=== PATIENT | female | born 1955 | race Caucasian/White ===

== ENCOUNTER 2023-06-10 21:13 | Inpatient (IN) ==
[2023-06-10] MEDS ORDERED: cefTRIAXone SODIUM 2,000 MG/50 ML BAG IV STA (21:39)
--- NOTE | 2023-06-10 21:43 | Emergency Department Note ---
Impression & Plan Sepsis, Acute UTI, Acute hypotension ED Provider Note NAME: MILY KAMARA AGE: 68 SEX: F : 1955 ARRIVES VIA: Walk-In INFORMANT: Patient ED PROVIDER(S): Elias Cifuentes DO CHIEF COMPLAINT: weakness HPI: Patient is a 68-year-old female who presents the ER for weakness. Family at bedside notes that yesterday she was yesterday stating that she was not feeling well. She denied all complaints. Family at bedside notes that she has had a little bit of a cough and runny nose. She has had a previous brain aneurysm which was clipped intra-arterially. Patient denies any head pain, change in vision, chest pain, shortness of breath, nausea, vomiting, or diarrhea. She does admit to dysuria, urgency, and frequency. She is not sure when this started. ADDITIONAL HISTORY OBTAINED: Per HPI Chronic Medical/Social Conditions Affecting Care: Per HPI PAST MEDICAL HISTORY:See Below PAST SURGICAL HISTORY:See Below FAMILY HISTORY:See Below SOCIAL HISTORY:See Below HOME MEDICATIONS:See Below ALLERGIES:See Below VITALS:See Below PHYSICAL EXAMINATION: GENERAL: Sitting up in bed, alert, disheveled, chronically ill-appearing EYE EXAM: normal conjunctiva. PERRL and EOM's grossly intact. OROPHARYNX: Mucous membranes are dry NECK: supple, no nuchal rigidity, no adenopathy, non-tender LUNGS: Clear to auscultation. Normal chest wall mechanics HEART: no murmurs, S1 normal and S2 normal ABDOMEN: abdomen soft, non-tender, normo-active bowel sounds, no masses, no rebound or guarding. UPPER EXTREMITIES: upper extremities are grossly normal. LOWER EXTREMITIES: No pitting edema. NEURO EXAM: Normal sensorium, cranial nerves II-XII grossly intact, normal speech, no gross weakness of arms, no gross weakness of legs. No drift. Finger to nose intact. Gross sensation intact. MEDICAL DECISION MAKING: Patient is a 68-year-old female who presents the ER for above-stated complaint. IV was established blood work was obtained. Labs show mild leukopenia at 4.7 thousand. No significant anemia. BMP with mild hypokalemia 3.4. Lactate was elevated 2.9. Patient was hypotensive initially with systolic pressures in the 80s. After 2 L patient's blood pressure trended up to the low 100s and remained in the low 100s. She was given a total of 2.5 L while in the ER. Given 2 g of Rocephin. LFTs bilirubin was unremarkable. Lipase was normal. TSH unremarkable. UA does suggest a clear UTI with bacteria, leuks, whites which is consistent with her symptoms. Patient and family were updated bedside. CT abdomen pelvis per my read showed no obvious bowel obstruction. She is updated bedside. Discussed with the hospitalist Dr. Carroll for further evaluation management treatment. Held on pressures of systolic pressures rebound and responsive to fluids and I do favor she was significantly dehydrated. External Records Reviewed: None Consults/Care Managements Discussions: Per [facility] Triage Nursing notes reviewed. Limited review of prior medical records performed Vital Signs: reviewed and remarkable for hypotensive Differential diagnosis: Differential diagnoses includes but is not limited to gastritis, peptic ulcer disease, GERD, gallbladder disease, pancreatitis, small bowel obstruction, appendicitis, diverticulitis, hernia, urinary tract infection, torsion, [/ectopic (if female)], perforation, trauma, infectious. ER treatment provided: See below Diagnostics interpreted by me include EKG and cardiac monitoring as listed below: -Cardiac Monitoring: An order was placed for continuous cardiac monitoring. The monitor shows a rate of 70 with sinus rhythm. -ECG: Sinus rhythm rate 76 Normal axis No PVCs Nonspecific ST wave changes in V2 through V6 ST wave changes have slightly worsened from previous -Laboratory studies:Interpreted by me as stated above in MDM and shown below. Imaging studies: Xrays: As interpreted by me: Portable AP upright 1 view of the chest shows no focal infiltrate CTs show: CT head and abdomen pelvis per my read shows no obvious large brain mass nor any obvious bowel obstruction Procedures:none Critical Care: I have personally spent 32 minutes of critical care time in the direct management of this patient. This includes bedside care, interpretation of diagnostic studies, and testing, discussion with consultants, patient, and family members, and other required patient management activities. This 32 minutes is in excess of all separately billable procedures. Past Med/Surg History Medical History (Updated 06/11/23 @ 00:25 by Elias Cifuentes DO) Aneurysm Family History (Updated 04/08/18 @ 05:10 by Mervin Carey) Other Family history non-contributory Social History Smoking Status: Never smoker Preferred Language: Guatemalan Feels Safe at Home: Yes Allergies Allergies Allergy/AdvReac Type Severity Reaction Status Date / Time amoxicillin Allergy . Verified 06/10/23 22:01 Penicillins Allergy . Verified 06/10/23 22:01 Home Meds Home Medications Medication Instructions Recorded Confirmed No Known Home Medications 06/10/23 06/10/23 Results & Data (ED) Vital Signs Vital Signs - 24 hr 06/10/23 21:16 06/10/23 21:26 06/10/23 21:26 Temperature 36.8 C Temperature Source Temporal Artery Scan Pulse Rate 78 75 78 Pulse Rhythm Regular Pulse Strength Normal Respiratory Rate 78 H 16 Respiratory Effort / Characteristics Non-Labored Spontaneous Respiratory Depth Normal Respiratory Pattern Regular Blood Pressure 82/43 L 88/54 L Blood Pressure Mean 56 58 Blood Pressure Position Sitting Pulse Oximetry 100 99 Oxygen Delivery Method Room Air Room Air Sepsis Recent Fever Within 48 Hours No Sepsis New/Unexplained Change in Mental Status N/A Sepsis Action Taken by Nursing No Action Required 06/10/23 21:30 06/10/23 21:39 06/10/23 21:46 Temperature Temperature Source Pulse Rate 77 77 76 Pulse Rhythm Pulse Strength Respiratory Rate 16 16 14 Respiratory Effort / Characteristics Respiratory Depth Respiratory Pattern Blood Pressure 83/51 L 82/55 L 82/66 L Blood Pressure Mean 59 62 69 Blood Pressure Position Pulse Oximetry 92 92 98 Oxygen Delivery Method Room Air Room Air Room Air Sepsis Recent Fever Within 48 Hours Sepsis New/Unexplained Change in Mental Status Sepsis Action Taken by Nursing 06/10/23 22:00 06/10/23 22:16 06/10/23 22:48 Temperature Temperature Source Pulse Rate 73 72 80 Pulse Rhythm Pulse Strength Respiratory Rate 15 15 22 Respiratory Effort / Characteristics Respiratory Depth Respiratory Pattern Blood Pressure 83/61 L 88/73 L 99/62 L Blood Pressure Mean 68 82 77 Blood Pressure Position Pulse Oximetry 97 95 93 Oxygen Delivery Method Room Air Room Air Room Air Sepsis Recent Fever Within 48 Hours Sepsis New/Unexplained Change in Mental Status Sepsis Action Taken by Nursing 06/10/23 23:00 06/10/23 23:15 06/10/23 23:30 Temperature Temperature Source Pulse Rate 78 76 78 Pulse Rhythm Pulse Strength Respiratory Rate 18 15 12 Respiratory Effort / Characteristics Respiratory Depth Respiratory Pattern Blood Pressure 104/62 108/61 109/82 Blood Pressure Mean 65 86 85 Blood Pressure Position Pulse Oximetry 95 95 94 Oxygen Delivery Method Room Air Room Air Room Air Sepsis Recent Fever Within 48 Hours Sepsis New/Unexplained Change in Mental Status Sepsis Action Taken by Nursing 06/10/23 23:45 Temperature Temperature Source Pulse Rate 81 Pulse Rhythm Pulse Strength Respiratory Rate 16 Respiratory Effort / Characteristics Respiratory Depth Respiratory Pattern Blood Pressure 99/74 L Blood Pressure Mean 83 Blood Pressure Position Pulse Oximetry 92 Oxygen Delivery Method Room Air Sepsis Recent Fever Within 48 Hours Sepsis New/Unexplained Change in Mental Status Sepsis Action Taken by Nursing Laboratory Data 06/10/23 21:30 06/10/23 21:30 Lab Results 06/10/23 06/10/23 06/10/23 Range/Units 21:30 21:32 21:40 WBC 4.76 L (4.8-10.8) K/ul RBC 3.74 L (4.20-5.40) M/uL Hgb 12.3 (12.0-16.0) g/dl Hct 34.8 L (37.0-47.0) % MCV 93.0 (80.0-100.0) fL MCH 32.9 (25.0-34.0) pg MCHC 35.3 (32.0-36.0) g/dL RDW Std Deviation 43.0 (36.4-46.3) fL RDW Coeff of [place] 12.6 (11.5-14.5) % Plt Count 130 (130-400) K/uL MPV 10.3 (9.4-12.4) fL Immature Gran % (Auto) 0.4 % Neut % (Auto) 74.2 % Lymph % (Auto) 20.6 % [place] % (Auto) 3.8 % Eos % (Auto) 0.2 % Baso % (Auto) 0.8 % Neut # (Auto) 3.53 (1.40-6.50) K/uL Lymph # (Auto) 0.98 L (1.20-3.40) K/uL [place] # (Auto) 0.18 (0.11-0.59) K/uL Eos # (Auto) 0.01 (0.00-0.50) K/uL Baso # (Auto) 0.04 (0.00-0.20) K/uL Immature Gran # (Auto) 0.02 (0.01-0.20) K/uL Sodium 132 L (136-145) mmol/L Potassium 3.4 L (3.5-5.1) mmol/L Chloride 97 L (98-107) mmol/L Carbon Dioxide 27 (21-32) mmol/L Anion Gap 8 (3-11) BUN 12 (6-23) mg/dl Creatinine 1.11 (0.6-1.2) mg/dl Est Cr Clr Drug Dosing Not Reportable Est GFR ( Amer) 59.1 ml/min Est GFR (Non-Af Amer) 51.0 ml/min BUN/Creatinine Ratio 10.8 (10-20) Glucose 83 (70-99(Fasting)) mg/dl POC Glucose 98 (70-99) mg/dl Lactate (0.4-2.0) mmol/L Calcium 9.1 (8.6-10.3) mg/dl Magnesium 1.9 (1.7-2.4) mg/dl Total Bilirubin 1.1 H (0.2-1.0) mg/dl AST 44 H (13-39) U/L ALT 14 (7-52) U/L Alkaline Phosphatase 40 (34-104) U/L Total Protein 7.6 (6.0-8.3) gm/dl Albumin 4.1 (3.4-5.0) gm/dl Globulin 3.5 (2.5-4.0) gm/dl Albumin/Globulin Ratio 1.2 (0.9-2) Lipase 28 (11-82) U/L TSH 2.367 (0.300-4.500) uIu/ml Urine Color Yellow Urine Appearance Cloudy A (Clear) Urine pH 8.0 H (4.5-7.5) Ur Specific [place] 1.011 (1.000-1.030) Urine Protein Negative (Negative) Urine Glucose (UA) Negative (Negative) Urine Ketones Negative (Negative) Urine Blood 1+ H (Negative) Urine Nitrite Negative (Negative) Urine Bilirubin Negative (Negative) Urine Urobilinogen Negative (Negative) Ur Leukocyte Esterase 1+ H (Negative) Urine WBC (Auto) >30 H (0-5) /hpf Urine RBC (Auto) 5-10 H (0-4) /hpf U Hyaline Cast (Auto) 10-30 H (0-5) /lpf U Epithel Cells (Auto) 5-10 H (0-5) /lpf Urine Bacteria (Auto) 2+ H (Negative) 06/10/23 Range/Units 23:16 WBC (4.8-10.8) K/ul RBC (4.20-5.40) M/uL Hgb (12.0-16.0) g/dl Hct (37.0-47.0) % MCV (80.0-100.0) fL MCH (25.0-34.0) pg MCHC (32.0-36.0) g/dL RDW Std Deviation (36.4-46.3) fL RDW Coeff of [place] (11.5-14.5) % Plt Count (130-400) K/uL MPV (9.4-12.4) fL Immature Gran % (Auto) % Neut % (Auto) % Lymph % (Auto) % [place] % (Auto) % Eos % (Auto) % Baso % (Auto) % Neut # (Auto) (1.40-6.50) K/uL Lymph # (Auto) (1.20-3.40) K/uL [place] # (Auto) (0.11-0.59) K/uL Eos # (Auto) (0.00-0.50) K/uL Baso # (Auto) (0.00-0.20) K/uL Immature Gran # (Auto) (0.01-0.20) K/uL Sodium (136-145) mmol/L Potassium (3.5-5.1) mmol/L Chloride (98-107) mmol/L Carbon Dioxide (21-32) mmol/L Anion Gap (3-11) BUN (6-23) mg/dl Creatinine (0.6-1.2) mg/dl Est Cr Clr Drug Dosing Est GFR ( Amer) ml/min Est GFR (Non-Af Amer) ml/min BUN/Creatinine Ratio (10-20) Glucose (70-99(Fasting)) mg/dl POC Glucose (70-99) mg/dl Lactate 2.9 H* (0.4-2.0) mmol/L Calcium (8.6-10.3) mg/dl Magnesium (1.7-2.4) mg/dl Total Bilirubin (0.2-1.0) mg/dl AST (13-39) U/L ALT (7-52) U/L Alkaline Phosphatase (34-104) U/L Total Protein (6.0-8.3) gm/dl Albumin (3.4-5.0) gm/dl Globulin (2.5-4.0) gm/dl Albumin/Globulin Ratio (0.9-2) Lipase (11-82) U/L TSH (0.300-4.500) uIu/ml Urine Color Urine Appearance (Clear) Urine pH (4.5-7.5) Ur Specific [place] (1.000-1.030) Urine Protein (Negative) Urine Glucose (UA) (Negative) Urine Ketones (Negative) Urine Blood (Negative) Urine Nitrite (Negative) Urine Bilirubin (Negative) Urine Urobilinogen (Negative) Ur Leukocyte Esterase (Negative) Urine WBC (Auto) (0-5) /hpf Urine RBC (Auto) (0-4) /hpf U Hyaline Cast (Auto) (0-5) /lpf U Epithel Cells (Auto) (0-5) /lpf Urine Bacteria (Auto) (Negative) Administered Medications Doxycycline Hyclate 100 mg/ (Dextrose) 100 mls @ 50 mls/hr IV NOW STA Stop: 06/11/23 01:36 Last Admin: 06/11/23 00:00 Dose: 50 mls/hr Documented By: KILEY Discontinued Medications Sodium Chloride (Nss) 1,000 mls @ 999 mls/hr IV .Q1H1M MOHIT Stop: 06/10/23 23:45 Last Admin: 06/10/23 23:31 Dose: 999 mls/hr Documented By: Infusion: 06/10/23 23:02 Dose: Infused Documented By: Admin: 06/10/23 22:01 Dose: 999 mls/hr Documented By: KILEY Ceftriaxone Sodium (Rocephin) 2,000 mg in 50 mls @ 100 mls/hr IV NOW STA Stop: 06/10/23 22:08 Last Infusion: 06/10/23 23:44 Dose: Infused Documented By: Admin: 06/10/23 23:14 Dose: 100 mls/hr Documented By: KILEY Sodium Chloride (Nss) 500 mls @ 999 mls/hr IV .Q31M ONE Stop: 06/10/23 23:21 Last Infusion: 06/10/23 23:26 Dose: Infused Documented By: Admin: 06/10/23 22:55 Dose: 999 mls/hr Documented By: KILEY Ioversol (Optiray 320 500ml) 91 ml IV ONCE ONE Stop: 06/10/23 22:36 Last Admin: 06/10/23 22:36 Dose: 91 ml Documented By: EDK Potassium Chloride (Potassium Chloride Crtab 20 Meq Tabcr) 20 meq PO NOW STA Stop: 06/10/23 23:43 Last Admin: 06/10/23 23:57 Dose: 20 meq Documented By: KILEY Discharge Plan Visit Data Chief Complaint: Hyperglycemia Stated Complaint: HYPERGLYCEMIA, DEHYDRATION REFERRED BY DR BOYKIN ED Provider: Elias Cifuentes Discharge Problem: Sepsis, Acute UTI, Acute hypotension Forms Stand Alone Forms: [employer] Prescriptions Prescriptions: No Action No Known Home Medications Referrals Referrals: PCP,NO [Primary Care Provider] - Discharge Problem: Sepsis Qualifiers: Sepsis type: sepsis due to unspecified organism Sepsis acute organ dysfunction status: unspecified Qualified Code(s): A41.9 - Sepsis, unspecified organism
[2023-06-10] MEDS: SODIUM CHLORIDE 0.9% 1,000 ML IV SCH ×2 (22:01→23:31)
[2023-06-10 22:03] LABS: Basophils # (auto) 0.04 K/uL (0.00-0.20); Basophils % (auto) 0.8 %; Eosinophils # (auto) 0.01 K/uL (0.00-0.50); Eosinophils % (auto) 0.2 %; Hematocrit (blood only) 34.8 % (37.0-47.0); Hemoglobin 12.3 g/dl (12.0-16.0); Immature Granulocytes # (auto) 0.02 K/uL (0.01-0.20); Immature Granulocytes % (auto) 0.4 %; Lymphocytes # (auto) 0.98 K/uL (1.20-3.40); Lymphocytes % (auto) 20.6 %; Mean Corpuscular Hemoglobin 32.9 pg (25.0-34.0); Mean Corpuscular Hgb Conc 35.3 g/dL (32.0-36.0); Mean Platelet Volume 10.3 fL (9.4-12.4); Monocytes # (auto) 0.18 K/uL (0.11-0.59); Monocytes % (auto) 3.8 %; Neutrophils # (auto) 3.53 K/uL (1.40-6.50); Neutrophils % (auto) 74.2 %; Platelet Count 130 K/uL (130-400); RDW Coefficient of Variation 12.6 % (11.5-14.5); Red Blood Count 3.74 M/uL (4.20-5.40); White Blood Count 4.76 K/ul (4.8-10.8)
[2023-06-10 22:16] LABS: Alanine Aminotransferase 14 U/L (7-52); Albumin Globulin Ratio 1.2 (0.9-2); Albumin Level 4.1 gm/dl (3.4-5.0); Alkaline Phosphatase 40 U/L (34-104); Anion Gap 8 (3-11); Aspartate Aminotransferase 44 U/L (13-39); BUN Creatinine Ratio 10.8 (10-20); Bilirubin,Total 1.1 mg/dl (0.2-1.0); Blood Urea Nitrogen 12 mg/dl (6-23); Calcium 9.1 mg/dl (8.6-10.3); Carbon Dioxide 27 mmol/L (21-32); Chloride 97 mmol/L (98-107); Est GFR (African American) 59.1 ml/min; Globulin 3.5 gm/dl (2.5-4.0); Glucose 83 mg/dl (70-99(Fasting)); Lipase 28 U/L (11-82); Potassium 3.4 mmol/L (3.5-5.1); Sodium 132 mmol/L (136-145); Total Protein 7.6 gm/dl (6.0-8.3)
[2023-06-10 22:18] LABS: Appearance Urine Cloudy (Clear); Bacteria Urine Automated 2+ (Negative); Bilirubin Urine Negative (Negative); Blood Urine 1+ (Negative); Color Urine Yellow; Glucose Urine UA Negative (Negative); Ketones Urine Negative (Negative); Leukocyte Esterase Urine 1+ (Negative); Nitrite Urine Negative (Negative); Protein Urine Negative (Negative); Specific Gravity Urine 1.011 (1.000-1.030); Urobilinogen Urine Negative (Negative); WBC Urine Automated >30 /hpf (0-5)
[2023-06-10] MEDS ORDERED: OPTIRAY 320 500ml IV ONE (22:35)
[2023-06-10] MEDS ORDERED: SODIUM CHLORIDE 0.9% 500 ML IV ONE (22:51)
[2023-06-10 23:31] LABS: Magnesium 1.9 mg/dl (1.7-2.4)
[2023-06-10] MEDS ORDERED: DOXYCYCLINE HYCLATE 100 MG in DEXTROSE 5% MINI-B 100 ML IV STA (23:37)
[2023-06-10] MEDS ORDERED: POTASSIUM CHLORIDE CRTAB 20 MEQ TABCR PO STA (23:42)
[2023-06-10] MEDS ORDERED: CEFEPIME 2,000 MG/20 ML VIAL IV STA (23:58)
[2023-06-11 00:02] LABS: Thyroid Stimulating Hormone 2.367 uIu/ml (0.300-4.500)
--- NOTE | 2023-06-11 00:22 | History & Physical Report ---
Date of Service June 11, 2023 Assessment & Plan (1) Acute hypotension: Plan: Secondary to decreased p.o. intake secondary to illness Improved blood pressure after initial intervention at the ER. Multifactorial: Severe COVID-19 pneumonia (patient found to have O2 sats of less than 94% RA at the ER) Complicated UTI, possible sepsis cerebral aneurysm status post surgery Medical telemetry Decadron for severe COVID-19 pneumonia Supportive management for COVID-19 illness for now CS, Cefepime Follow lactic acid response to IVF PT OT eval once medically stable DVT prophylaxis per Lovenox subcu Full code Text document was generated using [employer] voice recognition software. It may contain grammatical or spelling errors. Kindly contact undersigned for clarification of any documentation item in question. History of Present Illness Chief Complaint: Not feeling well as per patient Primary Care Provider: NO PCP History obtained from patient, family, and records. Medical history significant for cerebral aneurysm status post surgery. 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 Patient transferred to [facility] for patient underwent subsequent vascular intervention. Patient woke up feeling weak today. Dry cough symptoms with runny nose. Unaware of sick contacts. Patient has not received COVID-19 vaccination. Patient denies headache, chest pain, SOB, abdominal pain, diarrhea, dysuria symptoms. Somewhat sleepy at home as per family. BSG reported to be 300s. SBP 80s upon arrival at the ER. Lowest O2 sats of 90s documented at the ER. Ceftriaxone administered at the ER. Medical History as above Surgical History : Cerebral aneurysm surgery, hernia repair Family History : DM, stroke Personal/Social history : Non-smoker, no EtOH intake, [employer] homemaker Allergies Allergy/AdvReac Type Severity Reaction Status Date / Time amoxicillin Allergy . Verified 06/10/23 22:01 Penicillins Allergy . Verified 06/10/23 22:01 Home Medications Medication Instructions Recorded Confirmed Type No Known Home Medications 06/10/23 06/10/23 History Past Med/Surg History Medical History (Updated 06/11/23 @ 00:25 by Elias Cifuentes DO) Aneurysm Family History (Updated 04/08/18 @ 05:10 by Mervin Carey) Other Family history non-contributory Social History Smoking Status: Never smoker Preferred Language: Yoruba Feels Safe at Home: Yes Review of Systems Review of Systems: As per HPI, all other systems reviewed and negative Physical Exam Physical Exam: GENERAL: Coherent, ill looking, episodic dry cough, no respiratory distress SKIN: Normal color, warm HEENT: Pale palpebral conjunctivae, no ptosis, dry buccal mucosa NECK : Supple, no tenderness CHEST : Decreased breath sounds, no tenderness HEART : RRR, no obvious murmurs ABDOMEN: Some distention, nontender EXTREMITIES : No LE swelling/tenderness, no other conspicuous deformities noted NEUROLOGIC : Coherent, no facial asymmetry, gait and stance not assessed Results & Data Results & Data Vital Signs (Past 12 Hours) Vital Signs Temp Pulse Resp BP Pulse Ox O2 Del Method 06/10/23 23:45 81 16 99/74 L 92 Room Air 06/10/23 23:30 78 12 109/82 94 Room Air 06/10/23 23:15 76 15 108/61 95 Room Air 06/10/23 23:00 78 18 104/62 95 Room Air 06/10/23 22:48 80 22 99/62 L 93 Room Air 06/10/23 22:16 72 15 88/73 L 95 Room Air 06/10/23 22:00 73 15 83/61 L 97 Room Air 06/10/23 21:46 76 14 82/66 L 98 Room Air 06/10/23 21:39 77 16 82/55 L 92 Room Air 06/10/23 21:30 77 16 83/51 L 92 Room Air 06/10/23 21:26 78 16 88/54 L 99 Room Air 06/10/23 21:26 75 06/10/23 21:16 36.8 C 78 78 H 82/43 L 100 Room Air Laboratory Results Laboratory Results WBC 4.76 K/ul (4.8-10.8) L 06/10/23 21:30 RBC 3.74 M/uL (4.20-5.40) L 06/10/23 21:30 Hgb 12.3 g/dl (12.0-16.0) 06/10/23 21:30 Hct 34.8 % (37.0-47.0) L 06/10/23 21:30 MCV 93.0 fL (80.0-100.0) 06/10/23 21:30 MCH 32.9 pg (25.0-34.0) 06/10/23 21:30 MCHC 35.3 g/dL (32.0-36.0) 06/10/23 21: RDW Std Deviation 43.0 fL (36.4-46.3) 06/10/23: RDW Coeff of [place] 12.6 % (11.5-14.5) 06/10/23: Plt Count 130 K/uL (130-400) 06/10/23 21: MPV 10.3 fL (9.4-12.4) 06/10/23: Immature Gran % (Auto) 0.4 % 06/10/23: Neut % (Auto) 74.2 % 06/10/23: Lymph % (Auto) 20.6 % 06/10/23: [place] % (Auto) 3.8 % 06/10/23: Eos % (Auto) 0.2 % 06/10/23: Baso % (Auto) 0.8 % 06/10/23: Neut # (Auto) 3.53 K/uL (1.40-6.50) 06/10/23 21: Lymph # (Auto) 0.98 K/uL (1.20-3.40) L 06/10/23 21: [place] # (Auto) 0.18 K/uL (0.11-0.59) 06/10/23: Eos # (Auto) 0.01 K/uL (0.00-0.50) 06/10/23: Baso # (Auto) 0.04 K/uL (0.00-0.20) 06/10/23: Immature Gran # (Auto) 0.02 K/uL (0.01-0.20) 06/10/23: Sodium 132 mmol/L (136-145) L 06/10/23: Potassium 3.4 mmol/L (3.5-5.1) L 06/10/23: Chloride 97 mmol/L (98-107) L 06/10/23: Carbon Dioxide 27 mmol/L (21-32) 06/10/23: Anion Gap 8 (3-11) 06/10/23: BUN 12 mg/dl (6-23) 06/10/23: Creatinine 1.11 mg/dl (0.6-1.2) 06/10/23 21: Est Cr Clr Drug Dosing Not Reportable 06/10/23 21: Est GFR ( Amer) 59.1 ml/min 06/10/23 21: Est GFR (Non-Af Amer) 51.0 ml/min 06/10/23 21: BUN/Creatinine Ratio 10.8 (10-20) 06/10/23 21: Glucose 83 mg/dl (70-99(Fasting)) 06/10/23 21: POC Glucose 98 mg/dl (70-99) 06/10/23 21:32 Lactate 2.9 mmol/L (0.4-2.0) H* 06/10/23 23:16 Calcium 9.1 mg/dl (8.6-10.3) 06/10/23: Magnesium 1.9 mg/dl (1.7-2.4) 06/10/23: Total Bilirubin 1.1 mg/dl (0.2-1.0) H 06/10/23 21: AST 44 U/L (13-39) H 06/10/23 21: ALT 14 U/L (7-52) 06/10/23: Alkaline Phosphatase 40 U/L (34-104) 06/10/23: Total Protein 7.6 gm/dl (6.0-8.3) 06/10/23: Albumin 4.1 gm/dl (3.4-5.0) 06/10/23: Globulin 3.5 gm/dl (2.5-4.0) 06/10/23: Albumin/Globulin Ratio 1.2 (0.9-2) 06/10/23 21: Lipase 28 U/L (11-82) 06/10/23 21: TSH 2.367 uIu/ml (0.300-4.500) 06/10/23 21: Urine Color Yellow 06/10/23: Urine Appearance Cloudy (Clear) A 06/10/23: Urine pH 8.0 (4.5-7.5) H 06/10/23: Ur Specific [place] 1.011 (1.000-1.030) 06/10/23 21:40 Urine Protein Negative (Negative) 06/10/23 21:40 Urine Glucose (UA) Negative (Negative) 06/10/23 21:40 Urine Ketones Negative (Negative) 06/10/23 21:40 Urine Blood 1+ (Negative) H 06/10/23 21:40 Urine Nitrite Negative (Negative) 06/10/23 21:40 Urine Bilirubin Negative (Negative) 06/10/23 21:40 Urine Urobilinogen Negative (Negative) 06/10/23 21:40 Ur Leukocyte Esterase 1+ (Negative) H 06/10/23 21:40 Urine WBC (Auto) >30 /hpf (0-5) H 06/10/23 21:40 Urine RBC (Auto) 5-10 /hpf (0-4) H 06/10/23 21:40 U Hyaline Cast (Auto) 10-30 /lpf (0-5) H 06/10/23 21:40 U Epithel Cells (Auto) 5-10 /lpf (0-5) H 06/10/23 21:40 Urine Bacteria (Auto) 2+ (Negative) H 06/10/23 21:40 Diagnostic Findings Laboratory Results WBC 4.76 K/ul (4.8-10.8) L 06/10/23 21: RBC 3.74 M/uL (4.20-5.40) L 06/10/23 21:30 Hgb 12.3 g/dl (12.0-16.0) 06/10/23 21: Hct 34.8 % (37.0-47.0) L 06/10/23: MCV 93.0 fL (80.0-100.0) 06/10/23 21:30 MCH 32.9 pg (25.0-34.0) 06/10/23 21: MCHC 35.3 g/dL (32.0-36.0) 06/10/23 21: RDW Std Deviation 43.0 fL (36.4-46.3) 06/10/23 21: RDW Coeff of [place] 12.6 % (11.5-14.5) 06/10/23: Plt Count 130 K/uL (130-400) 06/10/23 21: MPV 10.3 fL (9.4-12.4) 06/10/23 21: Immature Gran % (Auto) 0.4 % 06/10/23 21: Neut % (Auto) 74.2 % 06/10/23: Lymph % (Auto) 20.6 % 06/10/23: [place] % (Auto) 3.8 % 06/10/23: Eos % (Auto) 0.2 % 06/10/23: Baso % (Auto) 0.8 % 06/10/23: Neut # (Auto) 3.53 K/uL (1.40-6.50) 06/10/23 21: Lymph # (Auto) 0.98 K/uL (1.20-3.40) L 06/10/23 21: [place] # (Auto) 0.18 K/uL (0.11-0.59) 06/10/23: Eos # (Auto) 0.01 K/uL (0.00-0.50) 06/10/23: Baso # (Auto) 0.04 K/uL (0.00-0.20) 06/10/23: Immature Gran # (Auto) 0.02 K/uL (0.01-0.20) 06/10/23: Sodium 132 mmol/L (136-145) L 06/10/23: Potassium 3.4 mmol/L (3.5-5.1) L 06/10/23: Chloride 97 mmol/L (98-107) L 06/10/23: Carbon Dioxide 27 mmol/L (21-32) 06/10/23: Anion Gap 8 (3-11) 06/10/23: BUN 12 mg/dl (6-23) 06/10/23: Creatinine 1.11 mg/dl (0.6-1.2) 06/10/23: Est Cr Clr Drug Dosing Not Reportable 06/10/23: Est GFR ( Amer) 59.1 ml/min 06/10/23: Est GFR (Non-Af Amer) 51.0 ml/min 06/10/23: BUN/Creatinine Ratio 10.8 (10-20) 06/10/23 21:30 Glucose 83 mg/dl (70-99(Fasting)) 06/10/23 21:30 POC Glucose 98 mg/dl (70-99) 06/10/23 21:32 Lactate 1.5 mmol/L (0.4-2.0) 06/11/23 01:59 Calcium 9.1 mg/dl (8.6-10.3) 06/10/23 21:30 Magnesium 1.9 mg/dl (1.7-2.4) 06/10/23 21: Total Bilirubin 1.1 mg/dl (0.2-1.0) H 06/10/23 21:30 AST 44 U/L (13-39) H 06/10/23 21: ALT 14 U/L (7-52) 06/10/23 21: Alkaline Phosphatase 40 U/L (34-104) 06/10/23 21: Total Protein 7.6 gm/dl (6.0-8.3) 06/10/23 21:30 Albumin 4.1 gm/dl (3.4-5.0) 06/10/23 21:30 Globulin 3.5 gm/dl (2.5-4.0) 06/10/23 21: Albumin/Globulin Ratio 1.2 (0.9-2) 06/10/23 21:30 Lipase 28 U/L (11-82) 06/10/23 21:30 TSH 2.367 uIu/ml (0.300-4.500) 06/10/23 21:30 Urine Color Yellow 06/10/23 21:40 Urine Appearance Cloudy (Clear) A 06/10/23 21:40 Urine pH 8.0 (4.5-7.5) H 06/10/23 21:40 Ur Specific [place] 1.011 (1.000-1.030) 06/10/23 21:40 Urine Protein Negative (Negative) 06/10/23 21:40 Urine Glucose (UA) Negative (Negative) 06/10/23 21: Urine Ketones Negative (Negative) 06/10/23 21:40 Urine Blood 1+ (Negative) H 06/10/23 21:40 Urine Nitrite Negative (Negative) 11/18/23 21:40 Urine Bilirubin Negative (Negative) 06/10/23 21:40 Urine Urobilinogen Negative (Negative) 06/10/23 21:40 Ur Leukocyte Esterase 1+ (Negative) H 06/10/23 21:40 Urine WBC (Auto) >30 /hpf (0-5) H 06/10/23 21:40 Urine RBC (Auto) 5-10 /hpf (0-4) H 06/10/23 21:40 U Hyaline Cast (Auto) 10-30 /lpf (0-5) H 06/10/23 21:40 U Epithel Cells (Auto) 5-10 /lpf (0-5) H 06/10/23 21:40 Urine Bacteria (Auto) 2+ (Negative) H 06/10/23 21:40 SARS-CoV-2 (PCR) POSITIVE (Negative) A* 06/10/23 23:53 Influenza Type A (PCR) Negative (Neg) 06/10/23 23:53 Influenza Type B (PCR) Negative (Neg) 06/10/23 23:53 RSV (RT-PCR) Negative (Neg) 06/10/23 23:53 Impressions Abdomen/Pelvis CT 06/10/23 21:40 Exam(s): CT ABDOMEN + PELVIS With Contrast IV Amt: OPTIRAY 320 91ML EXAM: CT Abdomen and Pelvis With Intravenous Contrast CLINICAL HISTORY: Reason for exam: weakness. TECHNIQUE: Axial computed tomography images of the abdomen and pelvis with intravenous contrast. CTDI is 109.17 mGy and DLP is 2851.26 mGy-cm. Automated exposure control was utilized for the study. A dose lowering technique was utilized adhering to the principles of ALARA. CONTRAST: Patient received OPTIRAY 320 91ML of IV contrast COMPARISON: 08/12/2013 FINDINGS: Lung bases: Lung bases demonstrate bilateral dependent atelectasis. ABDOMEN: Liver: Unremarkable. No mass. Gallbladder and bile ducts: Gallbladder has been removed. No ductal dilation. Pancreas: Unremarkable. No mass. No ductal dilation. Spleen: Unremarkable. No splenomegaly. Adrenals: Unremarkable. No mass. Kidneys and ureters: Unremarkable. No solid mass. No hydronephrosis. Stomach and bowel: There are air-fluid levels within a mildly distended colon concerning for a gastroenteritis. PELVIS: Appendix: Appendix is not identified but there are no secondary signs of appendicitis. Bladder: Unremarkable. No mass. Reproductive: Unremarkable as visualized. ABDOMEN and PELVIS: Intraperitoneal space: Unremarkable. No free air. No significant fluid collection. Bones/joints: No acute fracture. No dislocation. Soft tissues: Unremarkable. Vasculature: Unremarkable. No abdominal aortic aneurysm. Lymph nodes: Unremarkable. No enlarged lymph nodes. IMPRESSION: Air-fluid levels within a mildly distended colon concerning for a gastroenteritis. Electronically signed by: Allan Huizar M.D. 06/11/23 03:[address] 06/10/23 21:40 Exam(s): CT HEAD Without Contrast EXAM: CT Head Without Intravenous Contrast CLINICAL HISTORY: Reason for exam: weak. TECHNIQUE: Axial computed tomography images of the head/brain without intravenous contrast. CTDI is 109.17 mGy and DLP is 2851.26 mGy-cm. Automated exposure control was utilized for the study. A dose lowering technique was utilized adhering to the principles of ALARA. COMPARISON: Comparison is made to prior CT scan of the head from April 07, 2018. FINDINGS: The study is suboptimal secondary to motion artifact. Brain: Status post stent placement in the left cavernous and petrous ICA. No hemorrhage. Mild to moderate nonspecific white matter changes. No edema. Tiny pineal cyst. Ventricles: Unremarkable. No ventriculomegaly. Bones/joints: Unremarkable. No acute fracture. Soft tissues: Unremarkable. Sinuses: Chronic maxillary and ethmoid sinusitis. No acute sinusitis. Mastoid air cells: Unremarkable as visualized. No mastoid effusion. IMPRESSION: No evidence of acute intracranial pathology. Electronically signed by: Ines Mcmillan MD 06/11/23 04:50 AM EKG as per my interpretation :Rate 75, junctional rhythm, normal axis, septal infarct, T wave abnormalities anterolateral leads, PVCs
[2023-06-11 00:58] LABS: Influenza A virus by PCR Negative (Neg); Influenza B virus by PCR Negative (Neg); RSV by PCR Negative (Neg)
[2023-06-11] MEDS ORDERED: LACTATED RINGER'S 1,000 ML IV STA ×2 (01:12)
[2023-06-11 01:29] LABS: SARS CoV2 RNA(COVID-19) Ceph POSITIVE (Negative)
[2023-06-11] MEDS ORDERED: PROMETHAZINE HCL 6.25 MG in SODIUM CHLORIDE 0.9% 50 ML IV PRN (02:12)
[2023-06-11] MEDS ORDERED: PROMETHAZINE 6.25 MG/50.25 ML BAG IV STA (02:26)
--- NOTE | 2023-06-11 03:55 | CT Scan Report ---
Exam(s): CT ABDOMEN + PELVIS With Contrast IV Amt: OPTIRAY 320 91ML EXAM: CT Abdomen and Pelvis With Intravenous Contrast CLINICAL HISTORY: Reason for exam: weakness. TECHNIQUE: Axial computed tomography images of the abdomen and pelvis with intravenous contrast. CTDI is 109.17 mGy and DLP is 2851.26 mGy-cm. Automated exposure control was utilized for the study. A dose lowering technique was utilized adhering to the principles of ALARA. CONTRAST: Patient received OPTIRAY 320 91ML of IV contrast COMPARISON: 08/12/2013 FINDINGS: Lung bases: Lung bases demonstrate bilateral dependent atelectasis. ABDOMEN: Liver: Unremarkable. No mass. Gallbladder and bile ducts: Gallbladder has been removed. No ductal dilation. Pancreas: Unremarkable. No mass. No ductal dilation. Spleen: Unremarkable. No splenomegaly. Adrenals: Unremarkable. No mass. Kidneys and ureters: Unremarkable. No solid mass. No hydronephrosis. Stomach and bowel: There are air-fluid levels within a mildly distended colon concerning for a gastroenteritis. PELVIS: Appendix: Appendix is not identified but there are no secondary signs of appendicitis. Bladder: Unremarkable. No mass. Reproductive: Unremarkable as visualized. ABDOMEN and PELVIS: Intraperitoneal space: Unremarkable. No free air. No significant fluid collection. Bones/joints: No acute fracture. No dislocation. Soft tissues: Unremarkable. Vasculature: Unremarkable. No abdominal aortic aneurysm. Lymph nodes: Unremarkable. No enlarged lymph nodes. IMPRESSION: Air-fluid levels within a mildly distended colon concerning for a gastroenteritis. Electronically signed by: Allan Huizar M.D. 06/11/23 03:55 AM
--- NOTE | 2023-06-11 04:51 | CT Scan Report ---
Exam(s): CT HEAD Without Contrast EXAM: CT Head Without Intravenous Contrast CLINICAL HISTORY: Reason for exam: weak. TECHNIQUE: Axial computed tomography images of the head/brain without intravenous contrast. CTDI is 109.17 mGy and DLP is 2851.26 mGy-cm. Automated exposure control was utilized for the study. A dose lowering technique was utilized adhering to the principles of ALARA. COMPARISON: Comparison is made to prior CT scan of the head from April 07, 2018. FINDINGS: The study is suboptimal secondary to motion artifact. Brain: Status post stent placement in the left cavernous and petrous ICA. No hemorrhage. Mild to moderate nonspecific white matter changes. No edema. Tiny pineal cyst. Ventricles: Unremarkable. No ventriculomegaly. Bones/joints: Unremarkable. No acute fracture. Soft tissues: Unremarkable. Sinuses: Chronic maxillary and ethmoid sinusitis. No acute sinusitis. Mastoid air cells: Unremarkable as visualized. No mastoid effusion. IMPRESSION: No evidence of acute intracranial pathology. Electronically signed by: Ines Mcmillan MD 06/11/23 04:50 AM
[2023-06-11] MEDS ORDERED: DEXAMETHASONE SOD INJ 4 MG/ML VIAL IV STA (05:03)
[2023-06-11] MEDS ORDERED: guaiFENesin 600 MG TABCR PO STA (05:03)
[2023-06-11] MEDS ORDERED: MAGNESIUM SULFATE / D5W 1 GM/100 ML BAG IV ONE (05:21)
[2023-06-11] MEDS ORDERED: ACETAMINOPHEN 325 MG TAB PO PRN (05:25)
[2023-06-11] MEDS ORDERED: Patient's HEIGHT &/or WEIGHT Needed STA (05:31)
--- NOTE | 2023-06-11 07:06 | XRay Report ---
XR chest 1V portable HISTORY: sepsis COMPARISON: Chest CTA 08/12/2013. FINDINGS: No pneumothorax. No pleural effusions. The cardiac silhouette is normal in size. There is d iffuse interstitial/vascular thickening. This suggests mild congestive change. No focal lung consolid ations to suggest a pneumonia. Prior cholecystectomy. No acute fractures. IMPRESSION: Diffuse interstitial/vascular thickening suggestive of mild congestive change. ACT 112: Negative or not required by law. Electronically signed by: Dunacn Stephenson M.D. 06/11/2023 7:04 AM
[2023-06-11 07:37] LABS: BUN Creatinine Ratio 11.6 (10-20); Calcium 7.8 mg/dl (8.6-10.3); Creatinine Clr Calc Pharmacy 60.4 ml/min; Est GFR (African American) 71.3 ml/min; Est GFR (Non-African American) 61.5 ml/min; Potassium 3.5 mmol/L (3.5-5.1)
[2023-06-11 07:42] LABS: Mean Corpuscular Hemoglobin 32.9 pg (25.0-34.0); Mean Corpuscular Hgb Conc 35.7 g/dL (32.0-36.0); Mean Corpuscular Volume 92.1 fL (80.0-100.0); Mean Platelet Volume 9.9 fL (9.4-12.4); Platelet Count 95 K/uL (130-400); RDW Coefficient of Variation 12.4 % (11.5-14.5); RDW Standard Deviation 41.3 fL (36.4-46.3); Red Blood Count 3.04 M/uL (4.20-5.40); White Blood Count 3.56 K/ul (4.8-10.8)
[2023-06-11] MEDS ORDERED: PROMETHAZINE HCL INJ 25 MG/ML 1 ML VIAL ONE (07:47)
[2023-06-11 07:52] LABS: Basophils # (auto) 0.03 K/uL (0.00-0.20); Basophils % (auto) 0.8 %; Eosinophils # (auto) 0.01 K/uL (0.00-0.50); Eosinophils % (auto) 0.3 %; Immature Granulocytes # (auto) 0.02 K/uL (0.01-0.20); Immature Granulocytes % (auto) 0.6 %; Lymphocytes # (auto) 0.64 K/uL (1.20-3.40); Monocytes # (auto) 0.17 K/uL (0.11-0.59); Monocytes % (auto) 4.8 %; Neutrophils # (auto) 2.69 K/uL (1.40-6.50); Neutrophils % (auto) 75.5 %
[2023-06-11] MEDS ORDERED: REMDESIVIR 200 MG in SODIUM CHLORIDE 0.9% 210 ML IV ONE (09:00)
[2023-06-11] MEDS: ENOXAPARIN INJ 40 MG/0.4 ML SYR SQ SCH (10:26)
--- NOTE | 2023-06-11 10:50 | CT Scan Report ---
CT chest diagnostic wo con CT DOSE: 486.82 mGy.cm HISTORY: pneumonia, r/o effusion TECHNIQUE: Multiaxial CT images of the chest were performed without contrast. A dose lowering techni que was utilized adhering to the principles of ALARA. COMPARISON: Abdomen and pelvis CT 06/10/2023. Chest CT 08/12/2013. FINDINGS: Old, healed left-sided rib fractures. No acute fractures within the chest. No pneumothorax. The central airways are patent. There is mild interlobular septal thickening consistent with pulmona ry edema. Small amount of consolidation within the lungs posteriorly favor dependent change/atelectas is. Otherwise, no focal lung consolidations to suggest pneumonia. There are trace bilateral pleural e ffusions. Limited views of the upper abdomen demonstrate a few calcifications within the liver and a normal spleen. The visualized adrenal glands are unremarkable. Normal caliber esophagus. The heart is top normal in size. No pericardial effusion. Mild calcified plaque within the thoracic aorta. The as cending thoracic aorta measures up to 4 cm in diameter. No mediastinal or hilar lymphadenopathy. IMPRESSION: 1. Mild interstitial pulmonary edema and trace bilateral pleural effusions. 2. Patchy densities within the lungs posteriorly favor dependent change/atelectasis. Otherwise, no fo joan lung consolidations to suggest a pneumonia. 3. Mild aneurysmal dilatation of the ascending thoracic aorta measuring up to 4 cm in diameter. ACT 112: Negative or not required by law. Electronically signed by: Duncan Stephenson M.D. 06/11/2023 10:47 AM
[2023-06-11] MEDS: CEFEPIME 2,000 MG in SYRINGE 0 ML IV SCH (17:26)
[2023-06-11] MEDS ORDERED: FUROSEMIDE INJ 20 MG/2 ML VIAL IV ONE (19:15)
[2023-06-11] MEDS: guaiFENesin 600 MG TABCR PO SCH (21:35)
[2023-06-12] MEDS: CEFEPIME 2,000 MG in SYRINGE 0 ML IV SCH ×2 (00:25→12:15)
[2023-06-12 06:18] LABS: Basophils # (auto) 0.01 K/uL (0.00-0.20); Basophils % (auto) 0.1 %; Hematocrit (blood only) 30.5 % (37.0-47.0); Hemoglobin 10.9 g/dl (12.0-16.0); Immature Granulocytes # (auto) 0.04 K/uL (0.01-0.20); Immature Granulocytes % (auto) 0.6 %; Lymphocytes % (auto) 8.8 %; Mean Corpuscular Hemoglobin 32.5 pg (25.0-34.0); Mean Corpuscular Hgb Conc 35.7 g/dL (32.0-36.0); Mean Platelet Volume 10.2 fL (9.4-12.4); Monocytes # (auto) 0.16 K/uL (0.11-0.59); Monocytes % (auto) 2.3 %; Neutrophils % (auto) 88.2 %; Platelet Count 126 K/uL (130-400); RDW Coefficient of Variation 12.5 % (11.5-14.5); RDW Standard Deviation 41.6 fL (36.4-46.3); Red Blood Count 3.35 M/uL (4.20-5.40); White Blood Count 6.81 K/ul (4.8-10.8)
[2023-06-12 06:24] LABS: Albumin Globulin Ratio 1.1 (0.9-2); Albumin Level 3.6 gm/dl (3.4-5.0); BUN Creatinine Ratio 14.7 (10-20); Bilirubin,Total 0.7 mg/dl (0.2-1.0); Calcium 8.7 mg/dl (8.6-10.3); Creatinine Clr Calc Pharmacy 60.4 ml/min; Est GFR (African American) 71.3 ml/min; Est GFR (Non-African American) 61.5 ml/min; Globulin 3.4 gm/dl (2.5-4.0); Magnesium 2.3 mg/dl (1.7-2.4); Potassium 3.4 mmol/L (3.5-5.1)
[2023-06-12] MEDS ORDERED: dexAMETHasone 6 MG in SYRINGE 0 ML IV SCH (09:00)
[2023-06-12] MEDS: guaiFENesin 600 MG TABCR PO SCH ×2 (09:02→22:12)
[2023-06-12] MEDS: ENOXAPARIN INJ 40 MG/0.4 ML SYR SQ SCH (09:03)
[2023-06-12] MEDS ORDERED: POTASSIUM CHLORIDE CRTAB 20 MEQ TABCR PO STA (12:23)
[2023-06-12] MEDS: REMDESIVIR 100 MG in SODIUM CHLORIDE 0.9% 230 ML IV SCH (12:32)
[2023-06-12] MEDS: cefTRIAXone SODIUM 2,000 MG in DEXTROSE 5 % MINI-B 50 ML IV SCH (14:00)
--- NOTE | 2023-06-12 16:46 | Hospitalist Progress Note ---
Date of Service June 12, 2023 Assessment & Plan (1) Acute hypotension: Plan: Secondary to decreased p.o. intake secondary to illness Improved blood pressure after initial intervention at the ER. Multifactorial: Severe COVID-19 pneumonia (patient found to have O2 sats of less than 94% RA at the ER) Complicated UTI, possible sepsis -- Blood pressure now stable -- CT chest: Interstitial edema, no pneumonia Currently on room air, 98% DC Decadron Continue remdesivir day #2 Continue Mucinex, incentive spirometry, flutter valve On Lovenox for DVT prophylaxis --Urine culture: Pansensitive E. coli Transition to ceftriaxone IV cerebral aneurysm status post surgery DVT prophylaxis per Lovenox subcu Full code Anticipate discharge to home when medically stable Admission and Anticipated Discharge Date Admission Date: June 11, 2023 Subjective Follow-up for COVID-19 infection, UTI, etc. Seen sitting in the edge of the bed, in good spirits, smiling States she feels much better overall Breathing is improved, no cough, chest pain, palpitations, shortness of breath Denies abdominal pain, fevers or chills, nausea No other new symptom Review of Systems Review of Systems: all noted and negative except for above Physical Exam Physical Exam: General- oriented x 3, not in distress, speaks in sentences with no effort or accessory muscle use Eyes- anicteric Neck- no JVD Lungs- clear breath sounds bilaterally, no rales/wheezes Heart- normal rate, regular rhythm; no murmurs Abdomen- normal bowel sounds, nondistended, soft, nontender Extremities- no pretibial edema, no calf tenderness Neuro- alert, oriented x 3; no gross focal neurologic deficits Skin- warm & dry Results & Data Results & Data Vital Signs (Past 12 Hours) Vital Signs Temp Pulse Pulse Resp BP Pulse Ox Pulse Ox 06/12/23 15:25 64 18 121/74 94 06/12/23 15:00 94 06/12/23 08:00 67 20 117/74 93 06/12/23 07:32 63 06/12/23 05:19 36.6 C 67 16 103/69 96 O2 Del Method O2 Del Method 06/12/23 15:25 Room Air 06/12/23 15:00 Room Air 06/12/23 08:00 Room Air 06/12/23 07:32 06/12/23 05:19 Room Air all noted and reviewed including below
[2023-06-13 04:12] LABS: A calco-baum cmplx NotReported Not Detected (NotDetected); Bact fragilis Not Reported Not Detected (NotDetected); C auris Not Reported Not Detected (NotDetected); Calbicans Not Reported Not Detected (NotDetected); Candida glabrata Not Reported Not Detected (NotDetected); Candida krusei Not Reported Not Detected (NotDetected); Cneoformans/gatti Not Reported Not Detected (NotDetected); Cparapsilosis Not Reported Not Detected (NotDetected); E cloacae compx Not Reported Not Detected (NotDetected); Efaecalis Not Reported Not Detected (NotDetected); Efaecium Not Reported Not Detected (NotDetected); Enterobacterales Not Reported Not Detected (NotDetected); Escherichia coli Not Reported Not Detected (NotDetected); H influenzae Not Reported Not Detected (NotDetected); K aerogenes Not Reported Not Detected (NotDetected); Koxytoca Not Reported Not Detected (NotDetected); Kpneumoniae grp Not Reported Not Detected (NotDetected); Lmonocyt Not Reported Not Detected (NotDetected); N meningitidis Not Reported Not Detected (NotDetected); P aeruginosa Not Reported Not Detected (NotDetected); Proteus spp Not Reported Not Detected (NotDetected); Salmonella spp Not Reported Not Detected (NotDetected); Smarcescens Not Reported Not Detected (NotDetected); Staph lugdunensis Not Reported Not Detected (NotDetected); Staph spp. Not Reported Not Detected (NotDetected); Staphaureus Not Reported Not Detected (NotDetected); Staphepi Not Reported Not Detected (NotDetected); Stenmaltophilia Not Reported Not Detected (NotDetected); Strep agal(GrpB) Not Reported Not Detected (NotDetected); Strep pneum Not Reported Not Detected (NotDetected); Strep pyog (GrpA) Not Reported Not Detected (NotDetected); Strep spp Not Reported Not Detected (NotDetected)
[2023-06-13 07:46] LABS: Basophils # (auto) 0.01 K/uL (0.00-0.20); Basophils % (auto) 0.1 %; Hemoglobin 11.4 g/dl (12.0-16.0); Immature Granulocytes # (auto) 0.08 K/uL (0.01-0.20); Lymphocytes # (auto) 0.72 K/uL (1.20-3.40); Lymphocytes % (auto) 8.8 %; Mean Corpuscular Hemoglobin 32.7 pg (25.0-34.0); Mean Corpuscular Hgb Conc 35.6 g/dL (32.0-36.0); Mean Corpuscular Volume 91.7 fL (80.0-100.0); Mean Platelet Volume 10.1 fL (9.4-12.4); Monocytes # (auto) 0.17 K/uL (0.11-0.59); Monocytes % (auto) 2.1 %; Neutrophils # (auto) 7.22 K/uL (1.40-6.50); Platelet Count 145 K/uL (130-400); RDW Coefficient of Variation 12.8 % (11.5-14.5); RDW Standard Deviation 42.2 fL (36.4-46.3); Red Blood Count 3.49 M/uL (4.20-5.40)
[2023-06-13 08:55] LABS: Albumin Level 3.7 gm/dl (3.4-5.0); Bilirubin,Total 0.6 mg/dl (0.2-1.0); Calcium 8.6 mg/dl (8.6-10.3); Magnesium 2.3 mg/dl (1.7-2.4); Potassium 3.9 mmol/L (3.5-5.1)
[2023-06-13 09:01] LABS: Albumin Globulin Ratio 1.1 (0.9-2); BUN Creatinine Ratio 16.9 (10-20); Est GFR (Non-African American) 72.5 ml/min; Globulin 3.4 gm/dl (2.5-4.0); Total Protein 7.1 gm/dl (6.0-8.3)
[2023-06-13] MEDS: guaiFENesin 600 MG TABCR PO SCH (09:03)
[2023-06-13] MEDS: ENOXAPARIN INJ 40 MG/0.4 ML SYR SQ SCH (09:03)
[2023-06-13] MEDS: REMDESIVIR 100 MG in SODIUM CHLORIDE 0.9% 230 ML IV SCH (12:03)
--- NOTE | 2023-06-13 12:22 | XRay Report ---
SINGLE VIEW CHEST CLINICAL HISTORY: Covid. FINDINGS: An AP, portable, upright chest radiograph is compared to study dated 06/10/2023 and correla vinayak with chest CT dated 06/11/2023. The examination is degraded by portable technique and apical lord otic positioning. The heart is enlarged. Pulmonary vascular congestion has improved from previous. Th ere is mild bibasilar scarring/atelectasis. No airspace consolidation or large pleural effusion is id entified. No pneumothorax is seen. The skeletal structures are osteopenic. The bony thorax is grossly intact. IMPRESSION: 1. Cardiomegaly. Pulmonary vascular congestion has improved from recent prior studies. 2. No airspace consolidation or large pleural effusion is identified ACT 112: Negative or not required by law. Electronically signed by: Matthew Campbell M.D. 06/13/2023 12:21 PM
[2023-06-13] MEDS: cefTRIAXone SODIUM 2,000 MG in DEXTROSE 5 % MINI-B 50 ML IV SCH (13:08)
--- NOTE | 2023-06-13 18:36 | Hospitalist Progress Note ---
Date of Service June 13, 2023 Assessment & Plan (1) Acute hypotension: Plan: Multifactorial: Likely secondary to sepsis, poor oral intake -Responded immediately with fluid challenge at the ER Blood pressure stable while admitted Possible sepsis, present on admission Multifactorial: COVID-19 infection Complicated UTI -- Blood pressure stabilized after IV fluid challenge on admission patient found to have O2 sats of less than 94% RA at the ER Also given Decadron for episode of hypoxia at the ER -- CT chest: Interstitial edema, no pneumonia -- Completed 3-day course of remdesivir given Mucinex, incentive spirometry, flutter valve On Lovenox for DVT prophylaxis --Patient remained stable, on room air Discharge on Paxlovid given age group to prevent progression of severe pneumonia from COVID-19 Complicated UTI Bacteremia --Urine culture: Pansensitive E. coli Blood culture: Gram-negative bacilli in 1 bottle Repeat blood culture: Pending --Received cefepime x1 day, ceftriaxone x2 days -- Discharged on ciprofloxacin 500 mg p.o. twice daily x10-day course cerebral aneurysm status post surgery DVT prophylaxis per Lovenox subcu Full code Discharge to home Follow-up with PCP in 1 week Admission and Anticipated Discharge Date Admission Date: June 11, 2023 Subjective Follow-up for COVID-19 infection, UTI, bacteremia, etc. Seen resting in bed, comfortable, not in distress In good spirits States that she feels much better overall Denies shortness of breath, cough, chest pain, fevers or chills No abdominal, flank, back pain No other new symptoms States she is ready and would like to go home Patient's [id number] at the bedside visiting Review of Systems Review of Systems: all noted and negative except for above Physical Exam Physical Exam: General- oriented x 3, not in distress, speaks in sentences with no effort or accessory muscle use Eyes- anicteric Neck- no JVD Lungs- clear breath sounds bilaterally Heart- normal rate, regular rhythm; no murmurs Abdomen- normal bowel sounds, nondistended, soft, nontender Extremities- no pretibial edema, no calf tenderness Neuro- alert, oriented x 3; no gross focal neurologic deficits Skin- warm & dry Results & Data Results & Data Vital Signs (Past 12 Hours) Vital Signs Temp Pulse Pulse Resp BP Pulse Ox O2 Del Method 06/13/23 13:25 36.8 C 62 18 132/85 96 06/13/23 10:00 Room Air 06/13/23 08:33 36.8 C 62 18 132/85 96 Room Air 06/13/23 07:28 66 all noted and reviewed including below
--- NOTE | 2023-06-13 18:49 | Discharge Summary ---
Discharge Summary Date of Service June 13, 2023 Notes For Next Care Provider Medication Changes From Visit Ciprofloxacin 500 mg p.o. twice daily x 10 days Paxlovid x 3 days Admission HPI Per Admitting Provider History obtained from patient, family, and records. Medical history significant for cerebral aneurysm status post surgery. 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 Patient transferred to [facility] for patient underwent subsequent vascular intervention. Patient woke up feeling weak today. Dry cough symptoms with runny nose. Unaware of sick contacts. Patient has not received COVID-19 vaccination. Patient denies headache, chest pain, SOB, abdominal pain, diarrhea, dysuria symptoms. Somewhat sleepy at home as per family. BSG reported to be 300s. SBP 80s upon arrival at the ER. Lowest O2 sats of 90s documented at the ER. Ceftriaxone administered at the ER. Medical History as above Surgical History : Cerebral aneurysm surgery, hernia repair Family History : DM, stroke Personal/Social history : Non-smoker, no EtOH intake, Confucianist homemaker Admission Exam Per Admitting Provider GENERAL: Coherent, ill looking, episodic dry cough, no respiratory distress SKIN: Normal color, warm HEENT: Pale palpebral conjunctivae, no ptosis, dry buccal mucosa NECK : Supple, no tenderness CHEST : Decreased breath sounds, no tenderness HEART : RRR, no obvious murmurs ABDOMEN: Some distention, nontender EXTREMITIES : No LE swelling/tenderness, no other conspicuous deformities noted NEUROLOGIC : Coherent, no facial asymmetry, gait and stance not assessed Principal Dx & Hospital Course #1 = Principal Diagnosis (1) Acute hypotension: Multifactorial: Likely secondary to sepsis, poor oral intake -Responded immediately with fluid challenge at the ER Blood pressure stable while admitted Possible sepsis, present on admission Multifactorial: COVID-19 infection Complicated UTI -- Blood pressure stabilized after IV fluid challenge on admission patient found to have O2 sats of less than 94% RA at the ER Also given Decadron for episode of hypoxia at the ER -- CT chest: Interstitial edema, no pneumonia -- Completed 3-day course of remdesivir given Mucinex, incentive spirometry, flutter valve On Lovenox for DVT prophylaxis --Patient remained stable, on room air Discharge on Paxlovid given age group to prevent progression of severe pneumonia from COVID-19 Complicated UTI Bacteremia --Urine culture: Pansensitive E. coli Blood culture: Gram-negative bacilli in 1 bottle Repeat blood culture: Pending --Received cefepime x1 day, ceftriaxone x2 days -- Discharged on ciprofloxacin 500 mg p.o. twice daily x10-day course Abnormal CT chest finding 3. Mild aneurysmal dilatation of the ascending thoracic aorta measuring up to 4 cm in diameter. Please refer to full report in the procedure section below Base chest pain Further work up, management, and ff up as outpatient Cerebral aneurysm status post surgery [facility] Discharge to home Follow-up with PCP in 1 week Discharge Exam General- oriented x 3, not in distress, speaks in sentences with no effort or accessory muscle use Eyes- anicteric Neck- no JVD Lungs- clear breath sounds bilaterally Heart- normal rate, regular rhythm; no murmurs Abdomen- normal bowel sounds, nondistended, soft, nontender Extremities- no pretibial edema, no calf tenderness Neuro- alert, oriented x 3; no gross focal neurologic deficits Skin- warm & dry Updated Medication List Medication Instructions Recorded Confirmed Type ciprofloxacin HCl 500 mg tablet 500 mg PO BID 10 days #20 tabs 06/13/23 Rx nirmatrelvir 300 mg (150 mg See Rx Instructions PO .COMPLEX 06/13/23 Rx x2)-ritonavir 100 mg tablet,dose #30 ea pack (Paxlovid) Hospital Stay Data Consultations 06/10/23 22:51 ED Decision to Admit Stat Diagnostic Imagining Performed Laboratory Results WBC 8.20 K/ul (4.8-10.8) 06/13/23 07:32 RBC 3.49 M/uL (4.20-5.40) L 06/13/23 07:32 Hgb 11.4 g/dl (12.0-16.0) L 06/13/23 07:32 Hct 32.0 % (37.0-47.0) L 06/13/23 07:32 MCV 91.7 fL (80.0-100.0) 06/13/23 07:32 MCH 32.7 pg (25.0-34.0) 06/13/23 07:32 MCHC 35.6 g/dL (32.0-36.0) 06/13/23 07:32 RDW Std Deviation 42.2 fL (36.4-46.3) 06/13/23 07:32 RDW Coeff of [place] 12.8 % (11.5-14.5) 06/13/23 07:32 Plt Count 145 K/uL (130-400) 06/13/23 07:32 MPV 10.1 fL (9.4-12.4) 06/13/23 07:32 Immature Gran % (Auto) 1.0 % 06/13/23 07:32 Neut % (Auto) 88.0 % 06/13/23 07:32 Lymph % (Auto) 8.8 % 06/13/23 07:32 [place] % (Auto) 2.1 % 06/13/23 07:32 Eos % (Auto) 0.0 % 06/13/23 07:32 Baso % (Auto) 0.1 % 06/13/23 07:32 Neut # (Auto) 7.22 K/uL (1.40-6.50) H 06/13/23 07:32 Lymph # (Auto) 0.72 K/uL (1.20-3.40) L 06/13/23 07:32 [place] # (Auto) 0.17 K/uL (0.11-0.59) 06/13/23 07:32 Eos # (Auto) 0.00 K/uL (0.00-0.50) 06/13/23 07:32 Baso # (Auto) 0.01 K/uL (0.00-0.20) 06/13/23 07:32 Immature Gran # (Auto) 0.08 K/uL (0.01-0.20) 06/13/23 07:32 Sodium 140 mmol/L (136-145) 06/13/23 07:32 Potassium 3.9 mmol/L (3.5-5.1) 06/13/23 07:32 Chloride 108 mmol/L (98-107) H 06/13/23 07:32 Carbon Dioxide 26 mmol/L (21-32) 06/13/23 07:32 Anion Gap 6 (3-11) 06/13/23 07:32 BUN 14 mg/dl (6-23) 06/13/23 07:32 Creatinine 0.83 mg/dl (0.6-1.2) 06/13/23 07:32 Est Cr Clr Drug Dosing 69.0 ml/min 06/13/23 07:32 Est GFR ( Amer) 84.0 ml/min 06/13/23 07:32 Est GFR (Non-Af Amer) 72.5 ml/min 06/13/23 07:32 BUN/Creatinine Ratio 16.9 (10-20) 06/13/23 07:32 Glucose 106 mg/dl (70-99(Fasting)) H 06/13/23 07:32 POC Glucose 98 mg/dl (70-99) 06/10/23 21:32 Lactate 1.5 mmol/L (0.4-2.0) 06/11/23 01:59 Calcium 8.6 mg/dl (8.6-10.3) 06/13/23 07:32 Magnesium 2.3 mg/dl (1.7-2.4) 06/13/23 07:32 Total Bilirubin 0.6 mg/dl (0.2-1.0) 06/13/23 07:32 AST 51 U/L (13-39) H 06/13/23 07:32 ALT 19 U/L (7-52) 06/13/23 07:32 Alkaline Phosphatase 36 U/L (34-104) 06/13/23 07:32 B-Natriuretic Peptide 161 pg/ml (0-100) H 06/11/23 06:21 Total Protein 7.1 gm/dl (6.0-8.3) 06/13/23 07:32 Albumin 3.7 gm/dl (3.4-5.0) 06/13/23 07:32 Globulin 3.4 gm/dl (2.5-4.0) 06/13/23 07:32 Albumin/Globulin Ratio 1.1 (0.9-2) 06/13/23 07:32 Lipase 28 U/L (11-82) 06/10/23 21:30 TSH 2.367 uIu/ml (0.300-4.500) 06/10/23 21:30 Urine Color Yellow 06/10/23 21:40 Urine Appearance Cloudy (Clear) A 06/10/23 21:40 Urine pH 8.0 (4.5-7.5) H 06/10/23 21:40 Ur Specific [place] 1.011 (1.000-1.030) 06/10/23 21:40 Urine Protein Negative (Negative) 06/10/23 21:40 Urine Glucose (UA) Negative (Negative) 06/10/23 21:40 Urine Ketones Negative (Negative) 06/10/23 21:40 Urine Blood 1+ (Negative) H 06/10/23 21:40 Urine Nitrite Negative (Negative) 06/10/23 21:40 Urine Bilirubin Negative (Negative) 06/10/23 21:40 Urine Urobilinogen Negative (Negative) 06/10/23 21:40 Ur Leukocyte Esterase 1+ (Negative) H 06/10/23 21:40 Urine WBC (Auto) >30 /hpf (0-5) H 06/10/23 21:40 Urine RBC (Auto) 5-10 /hpf (0-4) H 06/10/23 21:40 U Hyaline Cast (Auto) 10-30 /lpf (0-5) H 06/10/23 21:40 U Epithel Cells (Auto) 5-10 /lpf (0-5) H 06/10/23 21:40 Urine Bacteria (Auto) 2+ (Negative) H 06/10/23 21:40 Nasal Screen MRSA (PCR) Negative (Negative) 06/11/23 19:45 SARS-CoV-2 (PCR) POSITIVE (Negative) A* 06/10/23 23:53 Influenza Type A (PCR) Negative (Neg) 06/10/23 23:53 Influenza Type B (PCR) Negative (Neg) 06/10/23 23:53 RSV (RT-PCR) Negative (Neg) 06/10/23 23:53 Bld Cult ID Panel PCR PCR Panel Negative (NotDetected) 06/10/23 23:18 Abdomen/Pelvis CT 06/10/23 21:40 Exam(s): CT ABDOMEN + PELVIS With Contrast IV Amt: OPTIRAY 320 91ML EXAM: CT Abdomen and Pelvis With Intravenous Contrast CLINICAL HISTORY: Reason for exam: weakness. TECHNIQUE: Axial computed tomography images of the abdomen and pelvis with intravenous contrast. CTDI is 109.17 mGy and DLP is 2851.26 mGy-cm. Automated exposure control was utilized for the study. A dose lowering technique was utilized adhering to the principles of ALARA. CONTRAST: Patient received OPTIRAY 320 91ML of IV contrast COMPARISON: 08/12/2013 FINDINGS: Lung bases: Lung bases demonstrate bilateral dependent atelectasis. ABDOMEN: Liver: Unremarkable. No mass. Gallbladder and bile ducts: Gallbladder has been removed. No ductal dilation. Pancreas: Unremarkable. No mass. No ductal dilation. Spleen: Unremarkable. No splenomegaly. Adrenals: Unremarkable. No mass. Kidneys and ureters: Unremarkable. No solid mass. No hydronephrosis. Stomach and bowel: There are air-fluid levels within a mildly distended colon concerning for a gastroenteritis. PELVIS: Appendix: Appendix is not identified but there are no secondary signs of appendicitis. Bladder: Unremarkable. No mass. Reproductive: Unremarkable as visualized. ABDOMEN and PELVIS: Intraperitoneal space: Unremarkable. No free air. No significant fluid collection. Bones/joints: No acute fracture. No dislocation. Soft tissues: Unremarkable. Vasculature: Unremarkable. No abdominal aortic aneurysm. Lymph nodes: Unremarkable. No enlarged lymph nodes. IMPRESSION: Air-fluid levels within a mildly distended colon concerning for a gastroenteritis. Electronically signed by: Allan Huizar M.D. 06/11/23 03:[address] 06/10/23 21:40 Exam(s): CT HEAD Without Contrast EXAM: CT Head Without Intravenous Contrast CLINICAL HISTORY: Reason for exam: weak. TECHNIQUE: Axial computed tomography images of the head/brain without intravenous contrast. CTDI is 109.17 mGy and DLP is 2851.26 mGy-cm. Automated exposure control was utilized for the study. A dose lowering technique was utilized adhering to the principles of ALARA. COMPARISON: Comparison is made to prior CT scan of the head from April 07, 2018. FINDINGS: The study is suboptimal secondary to motion artifact. Brain: Status post stent placement in the left cavernous and petrous ICA. No hemorrhage. Mild to moderate nonspecific white matter changes. No edema. Tiny pineal cyst. Ventricles: Unremarkable. No ventriculomegaly. Bones/joints: Unremarkable. No acute fracture. Soft tissues: Unremarkable. Sinuses: Chronic maxillary and ethmoid sinusitis. No acute sinusitis. Mastoid air cells: Unremarkable as visualized. No mastoid effusion. IMPRESSION: No evidence of acute intracranial pathology. Electronically signed by: Ines Mcmillan MD 06/11/23 04:[address] 06/11/23 08:47 CT chest diagnostic wo con CT DOSE: 486.82 mGy.cm HISTORY: pneumonia, r/o effusion TECHNIQUE: Multiaxial CT images of the chest were performed without contrast. A dose lowering technique was utilized adhering to the principles of ALARA. COMPARISON: Abdomen and pelvis CT 06/10/2023. Chest CT 08/12/2013. FINDINGS: Old, healed left-sided rib fractures. No acute fractures within the chest. No pneumothorax. The central airways are patent. There is mild interlobular septal thickening consistent with pulmonary edema. Small amount of consolidation within the lungs posteriorly favor dependent change/atelectasis. Otherwise, no focal lung consolidations to suggest pneumonia. There are trace bilateral pleural effusions. Limited views of the upper abdomen demonstrate a few calcifications within the liver and a normal spleen. The visualized adrenal glands are unremarkable. Normal caliber esophagus. The heart is top normal in size. No pericardial effusion. Mild calcified plaque within the thoracic aorta. The ascending thoracic aorta measures up to 4 cm in diameter. No mediastinal or hilar lymphadenopathy. IMPRESSION: 1. Mild interstitial pulmonary edema and trace bilateral pleural effusions. 2. Patchy densities within the lungs posteriorly favor dependent change/atelectasis. Otherwise, no focal lung consolidations to suggest a pne umonia. 3. Mild aneurysmal dilatation of the ascending thoracic aorta measuring up to 4 cm in diameter. ACT 112: Negative or not required by law. Electronically signed by: Duncan Stephenson M.D. 06/11/2023 10:47 AM Chest X-Ray 06/13/23 09:40 SINGLE VIEW CHEST CLINICAL HISTORY: Covid. FINDINGS: An AP, portable, upright chest radiograph is compared to study dated 06/10/2023 and correlated with chest CT dated 06/11/2023. The examination is degraded by portable technique and apical lordotic positioning. The heart is enlarged. Pulmonary vascular congestion has improved from previous. There is mild bibasilar scarring/atelectasis. No airspace consolidation or large pleural effusion is identified. No pneumothorax is seen. The skeletal structures are osteopenic. The bony thorax is grossly intact. IMPRESSION: 1. Cardiomegaly. Pulmonary vascular congestion has improved from recent prior studies. 2. No airspace consolidation or large pleural effusion is identified ACT 112: Negative or not required by law. Electronically signed by: Matthew Campbell M.D. 06/13/2023 12:21 PM Pending Results Patient Have Any Pending Studies at Discharge: Yes Discharge Instructions Given to Patient (Per Discharging Provider) PLEASE REFER TO YOUR NEW MEDICATION LIST AND FOLLOW INSTRUCTIONS CAREFULLY. YOUR NEW MEDICATIONS INCLUDE: CIPROFLOXACIN -Antibiotic for urinary tract infection, bloodstream infection PAXLOVID -Antiviral medication for COVID-19 infection - take for three (3) days only Please eat yogurt and take a probiotic daily for at least 1 month Please remain well-hydrated, drink plenty of fluids daily. PLEASE CALL YOUR PRIMARY CARE PHYSICIAN OR RETURN TO THE ER IF WITH WORSENING OF SYMPTOMS, INCLUDING Fevers or chills, weakness, nausea or vomiting, abdominal pain, problems in urination, Shortness of breath, cough, chest pain, etc. FOLLOW UP WITH PRIMARY CARE PROVIDERSBETTY SINGH AT [facility] [address] ON JUNE 19Monday AT 10:30 AM. ADDRESS OF THE CLINIC: [address] [place] [address] DIDI Sofia You need to isolate for another 7 days to prevent spread of COVID-19 infection Home Isolation COVID-19 Instructions The following information about Home Isolation is from the CDC Website: https://www.cdc.gov/coronavirus/2019-ncov/hcp/rznzjmmh-zgdojpx-kxmqom.html Stay home except to get medical care People who are mildly ill with COVID-19 are able to isolate at home during their illness. You should restrict activities outside your home, except for getting medical care. Do not go to work, school, or public areas. Avoid using public transportation, ride-sharing, or taxis. Separate yourself from other people and animals in your home People: As much as possible, you should stay in a specific room and away from other people in your home. Also, you should use a separate bathroom, if available. Animals: You should restrict contact with pets and other animals while you are sick with COVID-19, just like you would around other people. Although there have not been reports of pets or other animals becoming sick with COVID-19, it is still recommended that people sick with COVID-19 limit contact with animals until more information is known about the virus. When possible, have another member of your household care for your animals while you are sick. If you are sick with COVID-19, avoid contact with your pet, including petting, snuggling, being kissed or licked, and sharing food. If you must care for your pet or be around animals while you are sick, wash your hands before and after you interact with pets and wear a face mask. Call ahead before visiting your doctor If you have a medical appointment, call the healthcare provider and tell them that you have or may have COVID-19. This will help the healthcare providers office take steps to keep other people from getting infected or exposed. Wear a face mask You should wear a face mask when you are around other people (e.g., sharing a room or vehicle) or pets and before you enter a healthcare providers office. If you are not able to wear a face mask (for example, because it causes trouble breathing), then people who live with you should not stay in the same room with you, or they should wear a face mask if they enter your room. Cover your coughs and sneezes Cover your mouth and nose with a tissue when you cough or sneeze. Throw used tissues in a lined trash can. Immediately wash your hands with soap and water for at least 20 seconds or, if soap and water are not available, clean your hands with an alcohol-based hand senior contracts administrator that contains at least 60% alcohol. Clean your hands often Wash your hands often with soap and water for at least 20 seconds, especially after blowing your nose, coughing, or sneezing; going to the bathroom; and before eating or preparing food. If soap and water are not readily available, use an alcohol-based hand senior contracts administrator with at least 60% alcohol, covering all surfaces of your hands and rubbing them together until they feel dry. Soap and water are the best option if hands are visibly dirty. Avoid touching your eyes, nose, and mouth with unwashed hands. Avoid sharing personal household items You should not share dishes, drinking glasses, cups, eating utensils, towels, or bedding with other people or pets in your home. After using these items, they should be washed thoroughly with soap and water. Clean all high-touch surfaces everyday High touch surfaces include counters, tabletops, doorknobs, bathroom fixtures, toilets, phones, keyboards, tablets, and bedside tables. Also, clean any surfaces that may have blood, stool, or body fluids on them. Use a household cleaning spray or wipe, according to the label instructions. Labels contain instructions for safe and effective use of the cleaning product including precautions you should take when applying the product, such as wearing gloves and making sure you have good ventilation during use of the product. Monitor your symptoms Seek prompt medical attention if your illness is worsening (e.g., difficulty breathing).Beforeseeking care, call your healthcare provider and tell them that you have, or are being evaluated for, COVID-19. Put on a face mask before you enter the facility. These steps will help the healthcare providers office to keep other people in the office or waiting room from getting infected or exposed. Ask your healthcare provider to call the local or state health department. Persons who are placed under active monitoring or facilitated self- monitoring should follow instructions provided by their local health department or occupational health professionals, as appropriate. When working with your local health department check their available hours. If you have a medical emergency and need to call 911, notify the dispatch personnel that you have, or are being evaluated for COVID-19. If possible, put on a face mask before emergency medical services arrive. Discontinuing home isolation Patients with confirmed COVID-19 should remain under home isolation precautions until the risk of secondary transmission to others is thought to be low. The decision to discontinue home isolation precautions should be made on a [id number] basis, in consultation with healthcare providers and state and local health departments. Total Time Total Time Spent Total Time Spent (In Minutes): >30 minutes
--- NOTE | 2023-06-14 05:46 | Electrocardiogram Report ---
Test Reason : Blood Pressure : / mmHG Vent. Rate : 076 BPM Atrial Rate : 000 BPM P-R Int : 000 ms QRS Dur : 094 ms QT Int : 420 ms P-R-T Axes : 000 090 142 degrees QTc Int : 472 ms Sinus rhythm Rightward axis Abnormal ECG When compared with ECG of 07-APR-2018 22:55, Inverted T waves have replaced nonspecific T wave abnormality in Anterior leads Confirmed by Albert Ley ([id number]) on 06/14/2023 5:46:14 AM Referred By: REFERRED SELF Confirmed By:Albert Ley
== END 2023-06-13 14:05 | disposition home or self-care (01) | DRG 871 ==
LOC: ED 21:13 → EDINP 06-11 04:57 → 2N 06-12 15:31